=== PATIENT | female | born 1995 | race Two or more races ===

== ENCOUNTER 2023-10-24 09:15 | Emergency (ER) | payer SELFPAY ==
[~2023-10-24] VITALS: Ht 180.3 cm; Wt 76.8 kg
[2023-10-24 09:35] VITALS: O2SAT 100
[2023-10-24 10:05] LABS: BASOPHILS % 0.2 % (0.0-2.0); EOSINOPHILS % 0.1 % (0.0-5.0); HEMATOCRIT. 33.4 % (36.0-48.0); HEMOGLOBIN. 11.1 g/dL (12.0-16.0); LYMPHOCYTES % 11.2 % (20.0-50.0); MEAN CORPUSCULAR HEMOGLOBIN 30.8 pg (28.0-32.0); MEAN CORPUSCULAR HGB CONC 33.2 g/dL (31.0-37.0); MEAN CORPUSCULAR VOLUME 92.9 fL (81.0-99.0); MEAN PLATELET VOLUME 7.5 fl (7.4-10.4); MONOCYTES % 5.4 % (2.0-8.0); NEUTROPHILS % 83.1 % (40.0-76.0); PLATELET 352 x1000/uL (130-400); RED BLOOD CELL COUNT 3.59 mill/uL (4.2-5.4); RED CELL DISTRIBUTION WIDTH 13.6 % (11.6-14.6); WHITE BLOOD COUNT 11.6 x1000/uL (4.5-11.0)
[2023-10-24 10:18] LABS: CHLORIDE 103 mEq/L (98-107); POTASSIUM 3.1 mEq/L (3.5-5.1); SODIUM 137 mEq/L (136-145)
[2023-10-24 10:19] LABS: CARBON DIOXIDE 24 mEq/L (21-32)
[2023-10-24 10:24] LABS: CREATININE 0.5 mg/dL (0.6-1.0); GLUCOSE 92 mg/dL (70-105); UREA NITROGEN BLOOD 8 mg/dL (9-23)
[2023-10-24 10:26] LABS: CLARITY URINE CLEAR (CLEAR); COLOR URINE YELLOW (YELLOW); GLUCOSE URINE NEGATIVE (NEGATIVE); KETONES URINE 2+ (NEGATIVE); LEUKOCYTE ESTERASE URINE NEGATIVE (NEGATIVE); NITRITE URINE NEGATIVE (NEGATIVE); OCCULT BLOOD URINE TRACE (NEGATIVE); PROTEIN URINE NEGATIVE (NEGATIVE); SPECIFIC GRAVITY URINE 1.009 (1.005-1.030); UROBILINOGEN URINE 0.2 E.U./dL (0.2-1.0)
[2023-10-24 10:56] LABS: TROPONIN I HIGH SENSITIVITY < 4 ng/L (3.0-34)
[2023-10-24] MEDS: METOCLOPRAMIDE HCL 10MG TABLET PO ONE (11:00)
[2023-10-24] MEDS: POTASSIUM CHLORIDE 20MEQ/PACKET PO ONE (11:00)
[2023-10-24 11:02] LABS: SQUAMOUS EPITHELIAL CELL URINE 1+ /lpf (RARE/1+)
[2023-10-24 11:03] LABS: BACTERIA URINE TRACE; RBC URINE NONE SEEN /hpf (0-2); WBC URINE 0-2 /hpf (0-2)
[2023-10-24 11:30] VITALS: BP 108/65; PULSE 71; RESP 17; TEMP 98.2
[2023-10-24] MEDS ORDERED: METO-293 MT (11:42)
[2023-10-24] MEDS ORDERED: PREN-176 MT (11:43)
== END 2023-10-24 15:24 | disposition home or self-care (01) ==
LOC: ER 09:15
DX: O21.9 Vomiting of pregnancy, unspecified (principal); Z3A.01 Less than 8 weeks gestation of pregnancy
CPT/HCPCS: 99285; 71045; 80048; 81003; 81025; 84702; 85025; 84484; 36415; 93005; J8597